=== PATIENT | female | born 1985 | race Caucasian/White ===

== ENCOUNTER 2019-02-13 08:48 | Emergency (ER) | payer BC, OTHER ==
[2019-02-13 08:56] VITALS: RESP 18; TEMP 98.3
[2019-02-13] MEDS ORDERED: SODIUM CHLORIDE 0.9% 500 ML 500 ML IV STA (09:14)
[2019-02-13] MEDS ORDERED: ONDANSETRON 4 MG/2 ML VIAL IVP STA (09:14)
--- NOTE | 2019-02-13 09:21 | ED ---
General Adult HPI - General Chief complaint: Abdominal Pain Stated complaint: Stomach pain Time Seen by Provider: 02/13/19 08:50 Source: patient, RN notes reviewed Mode of arrival: ambulatory Limitations: no limitations - History of Present Illness Initial comments: This is a 33-year-old female presents emergency Department complaining of lower back pain. Patient states it's across the lower back is been ongoing for 3 weeks. Patient states she does not recall any injury she had no traumatic event. Patient denies lifting anything heavy or straining it. Patient states starting yesterday at 8 PM she had some abdominal pain and some burning sensat ion across to her abdomen. Pain is mid abdomen according to the patient. Patient states is no area of point tenderness. Patient denies any vomiting but states she is nauseated. Patient denies diarrhea. Patient denies any vaginal bleeding. Patient denies any vaginal discharge. Patient had a cholecystectomy and has had a tubal ligation - Related Data Home Medications Medication Instructions Recorded Confirmed Multivitamins, Thera [Multivitamin] 1 tab PO DAILY 12/10/15 02/13/19 Acetaminophen [Tylenol Extra 500 mg PO TID PRN 02/13/19 02/13/19 Strength] Sritmmc-Hqix-Gtzs [id number] 2 tab PO TID PRN 02/13/19 02/13/19 [Excedrin] Hydrocodone/Acetaminophen [[place] 1 tab PO Q6HR PRN 02/13/19 02/13/19 5-325] Omeprazole [PriLOSEC] 20 mg PO DAILY PRN 02/13/19 02/13/19 Allergies Allergy/AdvReac Type Severity Reaction Status Date / Time rizatriptan benzoate Allergy throat Verified 02/13/19 09:26 [From Maxalt] Swelling sumatriptan [From Imitrex] Allergy throat Verified 02/13/19 09:26 Swelling sumatriptan succinate Allergy throat Verified 02/13/19 09:26 [From Imitrex] Swelling Review of Systems ROS Statement: Those systems with pertinent positive or pertinent negative responses have been documented in the HPI. ROS Other: All systems not noted in ROS Statement are negative. Past Medical History Past Medical History: Fibromyalgia, GERD/Reflux, Liver Disease Additional Past Medical History / Comment(s): HEP C, CARRIER OF CYTOMEGLY VIRUS, CONSTIPATION. History of Any Multi-Drug Resistant Organisms: None Reported Past Surgical History: Section, Tubal Ligation Additional Past Surgical History / Comment(s): X2 Past Anesthesia/Blood Transfusion Reactions: No Reported Reaction, Motion Sickness Past Psychological History: Anxiety, Bipolar, Depression Smoking Status: Current every day smoker Past Alcohol Use History: Occasional Past Drug Use History: None Reported - Past Family History Mother Additional Family Medical History / Comment(s): CARRIER OF CYTOMEGLY VIRUS General Exam - General Exam Comments Initial Comments: GENERAL: Patient is well-developed and well-nourished. Patient is nontoxic and well- hydrated and is in mild distress. ENT: Neck is soft and supple. No significant lymphadenopathy is noted. Oropharynx is clear. Moist mucous membranes. Neck has full range of motion without eliciting any pain. EYES: The sclera were anicteric and conjunctiva were pink and moist. Extraocular movements were intact and pupils were equal round and reactive to light. Eyelids were unremarkable. PULMONARY: Unlabored respirations. Good breath sounds bilaterally. No audible rales rh onchi or wheezing was noted. CARDIOVASCULAR: There is a regular rate and rhythm without any murmurs gallops or rubs. ABDOMEN: Patient has no tenderness to the lower abdomen only slight tenderness in the epigastric region. SKIN: Skin is clear with no lesions or rashes and otherwise unremarkable. NEUROLOGIC: Patient is alert and oriented x3. Cranial nerves II through XII are grossly intact. Motor and sensory are also intact. Normal speech, volume and content. Symmetrical smile. MUSCULOSKELETAL: Normal extremities with adequate strength and full range of motion. No lower extremity swelling or edema. No calf tenderness. LYMPHATICS: No significant lymphadenopathy is noted PSYCHIATRIC: Normal psychiatric evaluation. Limitations: no limitations Course Vital Signs 02/13/19 08:53 Temperature 98.3 F Pulse Rate 75 Respiratory 18 Rate Blood Pressure 124/83 O2 Sat by Pulse 98 Oximetry Medical Decision Making - Medical Decision Making I will back into reevaluate the patient she continued to have some abdominal pain but was still complaining of back pain. Patient states the medicine helped but she was afraid that it would get worse when she went home. I suggested the patient that she stay for 23 hour observation and have surgery and possibly obesity. Patient refused because she had no one to watch her child. Computed tomography scan shows a possible left-sided colitis. Patient has no tenderness to palpation there and patient states the pain is equal on both sides of her abdomen. - Lab Data Result diagrams: 02/13/19 09:25 02/13/19 09:25 Lab Results 02/13/19 02/13/19 02/13/19 Range/Units 09:25 09:25 09:25 WBC 9.6 (3.8-10.6) k/uL RBC 5.05 (3.80-5.40) m/uL Hgb 15.8 (11.4-16.0) gm/dL Hct 47.1 H (34.0-46.0) % MCV 93.2 (80.0-100.0) fL MCH 31.3 (25.0-35.0) pg MCHC 33.6 (31.0-37.0) g/dL RDW 12.3 (11.5-15.5) % Plt Count 204 (150-450) k/uL Neutrophils % 72 % Lymphocytes % 19 % Monocytes % 6 % Eosinophils % 1 % Basophils % 1 % Neutrophils # 7.0 (1.3-7.7) k/uL Lymphocytes # 1.8 (1.0-4.8) k/uL Monocytes # 0.6 (0-1.0) k/uL Eosinophils # 0.1 (0-0.7) k/uL Basophils # 0.1 (0-0.2) k/uL Sodium 138 (137-145) mmol/L Potassium 4.0 (3.5-5.1) mmol/L Chloride 103 (98-107) mmol/L Carbon Dioxide 24 (22-30) mmol/L Anion Gap 11 mmol/L BUN 12 (7-17) mg/dL Creatinine 0.74 (0.52-1.04) mg/dL Est GFR (CKD-EPI)AfAm >90 (>60 ml/min/1.73 sqM) Est GFR (CKD-EPI)NonAf >90 (>60 ml/min/1.73 sqM) Glucose 98 (74-99) mg/dL Calcium 9.9 (8.4-10.2) mg/dL Total Bilirubin 0.8 (0.2-1.3) mg/dL AST 25 (14-36) U/L ALT 25 (9-52) U/L Alkaline Phosphatase 45 (38-126) U/L Total Protein 8.1 (6.3-8.2) g/dL Albumin 4.8 (3.5-5.0) g/dL Amylase 57 (30-110) U/L Lipase 12 L (23-300) U/L Urine Color Yellow Urine Appearance Clear (Clear) Urine pH 7.0 (5.0-8.0) Ur Specific [place] 1.014 (1.001-1.035) Urine Protein Negative (Negative) Urine Glucose (UA) Negative (Negative) Urine Ketones Negative (Negative) Urine Blood Negative (Negative) Urine Nitrite Negative (Negative) Urine Bilirubin Negative (Negative) Urine Urobilinogen <2.0 (<2.0) mg/dL Ur Leukocyte Esterase Negative (Negative) Urine HCG, Qual (Not Detectd) 02/13/19 Range/Units 09:25 WBC (3.8-10.6) k/uL RBC (3.80-5.40) m/uL Hgb (11.4-16.0) gm/dL Hct (34.0-46.0) % MCV (80.0-100.0) fL MCH (25.0-35.0) pg MCHC (31.0-37.0) g/dL RDW (11.5-15.5) % Plt Count (150-450) k/uL Neutrophils % % Lymphocytes % % Monocytes % % Eosinophils % % Basophils % % Neutrophils # (1.3-7.7) k/uL Lymphocytes # (1.0-4.8) k/uL Monocytes # (0-1.0) k/uL Eosinophils # (0-0.7) k/uL Basophils # (0-0.2) k/uL Sodium (137-145) mmol/L Potassium (3.5-5.1) mmol/L Chloride (98-107) mmol/L Carbon Dioxide (22-30) mmol/L Anion Gap mmol/L BUN (7-17) mg/dL Creatinine (0.52-1.04) mg/dL Est GFR (CKD-EPI)AfAm (>60 ml/min/1.73 sqM) Est GFR (CKD-EPI)NonAf (>60 ml/min/1.73 sqM) Glucose (74-99) mg/dL Calcium (8.4-10.2) mg/dL Total Bilirubin (0.2-1.3) mg/dL AST (14-36) U/L ALT (9-52) U/L Alkaline Phosphatase (38-126) U/L Total Protein (6.3-8.2) g/dL Albumin (3.5-5.0) g/dL Amylase (30-110) U/L Lipase (23-300) U/L Urine Color Urine Appearance (Clear) Urine pH (5.0-8.0) Ur Specific [place] (1.001-1.035) Urine Protein (Negative) Urine Glucose (UA) (Negative) Urine Ketones (Negative) Urine Blood (Negative) Urine Nitrite (Negative) Urine Bilirubin (Negative) Urine Urobilinogen (<2.0) mg/dL Ur Leukocyte Esterase (Negative) Urine HCG, Qual Not Detected (Not Detectd) Disposition Clinical Impression: Abdominal pain Disposition: HOME SELF-CARE Instructions (If sedation given, give patient instructions): Abdominal Pain (ED) Is patient prescribed a controlled substance at d/c from ED?: No Referrals: Jennifer Pierson DO [Primary Care Provider] - 1-2 days Time of Disposition: 11:34
[2019-02-13 09:33] LABS: Appearance,Urine Clear (Clear); Basophils # (A) 0.1 k/uL (0-0.2); Basophils % (A) 1 %; Bilirubin,Urine Negative (Negative); Blood,Urine Negative (Negative); Color,Urine Yellow; Eosinophils # (A) 0.1 k/uL (0-0.7); Eosinophils % (A) 1 %; Glucose,Urine (UA) Negative (Negative); HCT 47.1 % (34.0-46.0); HGB 15.8 gm/dL (11.4-16.0); Ketones,Urine Negative (Negative); Leukocyte Esterase,Urine Negative (Negative); Lymphocytes # (A) 1.8 k/uL (1.0-4.8); Lymphocytes % (A) 19 %; MCH 31.3 pg (25.0-35.0); MCHC 33.6 g/dL (31.0-37.0); MCV 93.2 fL (80.0-100.0); Mean Platelet Volume 7.9; Monocytes # (A) 0.6 k/uL (0-1.0); Monocytes % (A) 6 %; Neutrophils % (A) 72 %; Nitrite,Urine Negative (Negative); Platelet Count 204 k/uL (150-450); Protein,Urine Negative (Negative); RBC 5.05 m/uL (3.80-5.40); RDW 12.3 % (11.5-15.5); Specific Gravity,Urine 1.014 (1.001-1.035); Urobilinogen,Urine <2.0 mg/dL (<2.0); WBC 9.6 k/uL (3.8-10.6)
[2019-02-13] MEDS ORDERED: KETOROLAC 60 MG/2 ML VIAL IVP STA (09:42)
[2019-02-13 09:44] LABS: ALT 25 U/L (9-52); AST 25 U/L (14-36); African American GFR (CKD) >90 (>60 ml/min/1.73 sqM); Albumin 4.8 g/dL (3.5-5.0); Alkaline Phosphatase 45 U/L (38-126); Amylase 57 U/L (30-110); Anion Gap 11 mmol/L; Blood Urea Nitrogen 12 mg/dL (7-17); Calcium 9.9 mg/dL (8.4-10.2); Carbon Dioxide 24 mmol/L (22-30); Chloride 103 mmol/L (98-107); Glucose 98 mg/dL (74-99); Sodium 138 mmol/L (137-145); Total Bilirubin 0.8 mg/dL (0.2-1.3); Total Protein 8.1 g/dL (6.3-8.2)
--- NOTE | 2019-02-13 10:59 | CT ---
EXAMINATION TYPE: CT abdomen pelvis w con DATE OF EXAM: 02/13/2019 REFERENCE: Previous study dated 04/11/2016 HISTORY: Abdominal pain HISTORY: bapain and pelvic pain CT DLP: 768.5 mGy Automated exposure control for dose reduction was used. TECHNIQUE: Helical acquisition through the abdomen and pelvis was obtained following the oral ingesti on of without Oral Contrast and following intravenous administration of 100 mL of Isovue 300. The joby a was reformatted in axial, coronal and sagittal projections. FINDINGS: The visualized portions of the lungs are clear. There is no pleural or pericardial fluid. The heart is not enlarged.. Within the abdomen, the liver and spleen are normal. Gallbladder is not identified. Both adrenal glands are normal. Both kidneys demonstrate function and appear morphologically normal. There is thickening of the left side of the colon. The appendix is normal. The bladder is unremarkable. There is follicular change present in both ovaries. The uterus is unremarkable. Small bowel loops are of normal caliber. No free air is seen. There is a small amount of free fluid within the pelvis. IMPRESSION: THICKENING OF THE LEFT SIDE OF THE COLON. PLEASE CORRELATE FOR COLITIS
[2019-02-13 11:53] VITALS: BP 130/93; PULSE 84
== END 2019-02-13 11:53 | disposition home or self-care (01) ==
LOC: EC 08:48
DX: R10.9 Unspecified abdominal pain (principal); M54.5 Low back pain; Z32.02 Encounter for pregnancy test, result negative; K21.9 Gastro-esophageal reflux disease without esophagitis; F17.200 Nicotine dependence, unspecified, uncomplicated; Z79.899 Other long term (current) drug therapy; Z88.8 Allergy status to other drugs, medicaments and biological substances; Z90.49 Acquired absence of other specified parts of digestive tract
CPT/HCPCS: 36415; 80053; 82150; 83690; 85025; 81003; 81025; 74177; 99284; 96374; 96375; J2405; J1885; Q9967

== ENCOUNTER → 2019-02-15 | Outpatient (CLI) | payer OTHER ==
[2019-02-15 16:20] LABS: Basophils % (A) 0 %; Eosinophils # (A) 0.1 k/uL (0-0.7); Eosinophils % (A) 2 %; HCT 38.7 % (34.0-46.0); HGB 13.1 gm/dL (11.4-16.0); INR 0.9 (<1.2); Lymphocytes # (A) 2.4 k/uL (1.0-4.8); Lymphocytes % (A) 40 %; MCH 31.7 pg (25.0-35.0); MCHC 33.8 g/dL (31.0-37.0); MCV 93.7 fL (80.0-100.0); Mean Platelet Volume 7.5; Monocytes # (A) 0.4 k/uL (0-1.0); Monocytes % (A) 6 %; Neutrophils % (A) 50 %; Platelet Count 167 k/uL (150-450); Prothrombin Time 10.2 sec (9.0-12.0); RBC 4.13 m/uL (3.80-5.40); RDW 12.2 % (11.5-15.5); WBC 5.9 k/uL (3.8-10.6)
[2019-02-16 01:06] LABS: ALT 27 U/L (8-44); AST 26 U/L (13-35); African American GFR (CKD) 132.9 (60.0-200.0); Albumin/Globulin Ratio 2.21 (1.60-3.17); Alkaline Phosphatase 37 U/L (41-126); Bilirubin, Conjugated <0.20 mg/dL (0.20-0.40); Globulin 1.9 g/dL (1.6-3.3); Total Bilirubin 0.3 mg/dL (0.2-1.2); Total Protein 6.1 g/dL (6.2-8.2)
== END | disposition home or self-care (01) ==
LOC: LABWHC1 15:35
PROVIDERS: ATTEND Physician Assistant
DX: B18.2 Chronic viral hepatitis C (principal)
CPT/HCPCS: 36415; 80076; 82565; 84520; 85025; 85610; 87522

== ENCOUNTER → 2019-03-11 | Day surgery (SDC) | payer OTHER ==
[2019-03-09 09:17] VITALS: BMI 18.0
[~2019-03-11] MED LIST: LACTATED RINGERS 1,000 ML IV SCH; LIDOCAINE 1% 20 ML VIAL (10MG/ML) FOR IV START INTRADERMA PRN; LIDOCAINE 1% INJ 10MG/ML (20 ML MDV) ONE; PROPOFOL 10 MG/ML 20 ML VIAL IV ONE; fentaNYL (PF) 50 MCG/ML 2 ML AMP ONE
[2019-03-11 12:07] VITALS: TEMP 97.6
--- NOTE | 2019-03-11 13:39 | P.PCN ---
Date of Procedure: 03/11/19 Procedure(s) Performed: BRIEF HISTORY: Patient is a 34-year-old pleasant female scheduled for an elective colonoscopy as a part of lower abdominal pain and change in bowel habits for the last 2 months duration. She went to the emergency room 3 weeks ago and had a CAT scan of abdomen that showed thickening of the left colon. She isn't scheduled for colonoscopy to evaluate her symptoms further. PROCEDURE PERFORMED: Colonoscopy with biopsy. PREOPERATIVE DIAGNOSIS: Lower abdominal pain and change in bowel habits of 2 months duration. IV sedation per Anesthesia. PROCEDURE: After informed consent was obtained, the patient, was brought into the endoscopy unit. IV sedation was administered by Anesthesia under continuous monitoring. Digital rectal examination was normal. Initially the Olympus CF-160 flexible video colonoscope was then inserted in the rectum, gradually advanced into the cecum without any difficulty. Careful examination was performed as the scope was gradually being withdrawn. Ileocecal valve and the appendiceal orifice were visualized and appeared normal. Prep was excellent. Terminal ileum was intubated and 20 cm visualized appeared normal and biopsies were done from this area. Mucosa of the cecum, ascending colon, transverse colon, descending colon, sigmoid colon, and rectum appeared normal. Retroflexion was performed in the rectum and no lesions were seen. The patient tolerated the procedure well. IMPRESSION: Normal-appearing colon from rectum to cecum with no evidence of colitis or colorectal neoplasia . RECOMMENDATIONS: Findings of this examination were discussed with the patient is a family. She was advised to follow with the biopsy results. She will continue with Bentyl 10 mg 3 times daily as needed and she'll be seen in office in 2-3 weeks. .
[2019-03-11 13:54] VITALS: RESP 18
[2019-03-11 14:01] VITALS: BP 133/87; PULSE 63
== END ==
LOC: ORWHC2ENDO 11:10
PROVIDERS: ATTEND Internal Medicine Gastroenterology
DX: R10.30 Lower abdominal pain, unspecified (principal); R19.4 Change in bowel habit; R19.7 Diarrhea, unspecified; F31.9 Bipolar disorder, unspecified; M79.7 Fibromyalgia; K74.60 Unspecified cirrhosis of liver; B19.20 Unspecified viral hepatitis C without hepatic coma; K21.9 Gastro-esophageal reflux disease without esophagitis; F17.200 Nicotine dependence, unspecified, uncomplicated; Z88.8 Allergy status to other drugs, medicaments and biological substances
CPT/HCPCS: 81025; 88305; 45380; J2001; J3010; J2704

== ENCOUNTER 2019-12-27 19:28 | Emergency (ER) | payer BC, OTHER ==
[2019-12-27 19:52] VITALS: PULSE 98; RESP 18
[2019-12-27] MEDS ORDERED: DEXAMETHASONE SOD PHOSPHATE 10 MG/ML 1 ML VIAL IV STA (20:16)
[2019-12-27] MEDS ORDERED: diphenhydrAMINE 50 MG/ML 1 ML VIAL IVP STA (20:16)
[2019-12-27] MEDS ORDERED: METOCLOPRAMIDE 5 MG/ML 2 ML VIAL IVP STA (20:16)
[2019-12-27] MEDS ORDERED: KETOROLAC 15 MG/ML 1 ML VIAL IVP STA (20:16)
--- NOTE | 2019-12-27 20:58 | ED ---
Headache HPI - General Chief Complaint: Headache Stated Complaint: Headache Time Seen by Provider: 12/27/19 19:53 Mode of arrival: ambulatory Limitations: no limitations - History of Present Illness Initial Comments: Patient is a 34-year-old female presenting to emergency Department with a chief complaint of a headache. Patient states she has recurrent migraines and this one feels exactly like her other migraine. Patient reports the pain started yesterday and is located in the left side of her head. Patient reports there is nausea with multiple episodes of nonbilious and nonbloody vomiting. She also reports photophobia but denies any visual disturbances. States this is not the worst headache of her life. Gradual onset of pain. Does report taking ibuprofen at home with no improvement in symptoms. - Related Data Home Medications Medication Instructions Recorded Confirmed Acetaminophen [Tylenol Extra 1,500 mg PO Q8H PRN 12/27/19 12/27/19 Strength] Ibuprofen 800 mg PO Q8H PRN 12/27/19 12/27/19 Allergies Allergy/AdvReac Type Severity Reaction Status Date / Time rizatriptan benzoate Allergy throat Verified 12/27/19 20:38 [From Maxalt] Swelling sumatriptan succinate Allergy throat Verified 12/27/19 20:38 [From Imitrex] Swelling Review of Systems ROS Statement: Those systems with pertinent positive or pertinent negative responses have been documented in the HPI. ROS Other: All systems not noted in ROS Statement are negative. Past Medical History Past Medical History: Fibromyalgia, GERD/Reflux, Liver Disease Additional Past Medical History / Comment(s): HEP C, CARRIER OF CYTOMEGLY VIRUS, migraines History of Any Multi-Drug Resistant Organisms: None Reported Past Surgical History: Section, Tubal Ligation Additional Past Surgical History / Comment(s): X2 Past Anesthesia/Blood Transfusion Reactions: No Reported Reaction, Motion Sickness Past Psychological History: Anxiety, Bipolar, Depression Smoking Status: Current every day smoker Past Alcohol Use History: Occasional Past Drug Use History: None Reported - Past Family History Mother Additional Family Medical History / Comment(s): CARRIER OF CYTOMEGLY VIRUS General Exam Limitations: no limitations General appearance: alert, in no apparent distress Head exam: Present: atraumatic, normocephalic, normal inspection Eye exam: Present: normal appearance, PERRL, EOMI Pupils: Present: normal accommodation ENT exam: Present: normal exam, normal oropharynx, TM's normal bilaterally Neck exam: Present: normal inspection, full ROM. Absent: tenderness, meningismus, lymphadenopathy Respiratory exam: Present: normal lung sounds bilaterally. Absent: respiratory distress, wheezes, rales Cardiovascular Exam: Present: regular rate, normal rhythm, normal heart sounds Extremities exam: Present: normal inspection, full ROM, normal capillary refill, other (+2 ulnar and radial pulses bilaterally.) Back exam: Present: normal inspection, full ROM. Absent: tenderness Neurological exam: Present: alert, oriented X3, normal gait Psychiatric exam: Present: normal affect, normal mood Skin exam: Present: warm, dry, intact, normal color Course Vital Signs 12/27/19 19:47 Temperature 98.8 F Pulse Rate 98 Respiratory 18 Rate Blood Pressure 117/80 O2 Sat by Pulse 97 Oximetry Medical Decision Making - Medical Decision Making Patient is a 34-year-old female presenting to the emergency department with chief complaint of a headache. Patient has history of recurrent headaches and this feels exactly like her other headaches. Physical examination is unremarkable. Neurological examination is intact. No visual disturbances. Photophobia nausea or vomiting. Patient was given Reglan, Benadryl, Toradol, IV fluids and Decadron. On reevaluation patient reports improving symptoms. Strict return parameters were thoroughly discussed with patient was understanding and agreeable. Case discussed with physician. Disposition Clinical Impression: Migraine headache without aura Disposition: HOME SELF-CARE Condition: Stable Instructions (If sedation given, give patient instructions): Acute Headache (ED) Additional Instructions: Follow with her primary care physician. Return to emergency department if symptoms worsen. Is patient prescribed a controlled substance at d/c from ED?: No Referrals: Jennifer Pierson DO [Primary Care Provider] - 1-2 days Time of Disposition: 21:00
[2019-12-27 21:10] VITALS: BP 111/76; TEMP 99.3
== END 2019-12-27 21:09 | disposition home or self-care (01) ==
LOC: EC 19:28
DX: G43.009 Migraine without aura, not intractable, without status migrainosus (principal); F17.200 Nicotine dependence, unspecified, uncomplicated; Z88.8 Allergy status to other drugs, medicaments and biological substances
CPT/HCPCS: 99283; 96374; 96375 ×3; J1200; J1100; J2765; J1885